=== PATIENT | male | born 2000 | race Caucasian/White ===

== ENCOUNTER 2024-09-03 22:44 | Emergency (ER) | payer OTHER ==
[~2024-09-03] VITALS: Ht 177.8 cm; Wt 53.0 kg
[2024-09-03 23:20] VITALS: TEMP 36.9; O2SAT 100
[2024-09-03] MEDS ORDERED: LIDO700A15 TP (23:41)
[2024-09-03] MEDS ORDERED: IBUP-2028 MT (23:41)
[2024-09-03 23:58] VITALS: BP 116/70; PULSE 71; RESP 16; O2SAT 98
== END 2024-09-03 23:58 | disposition home or self-care (01) ==
LOC: ER 22:44
DX: M54.2 Cervicalgia (principal); Z90.49 Acquired absence of other specified parts of digestive tract; V43.52XA Car driver injured in collision with other type car in traffic accident, initial encounter; Y93.89 Activity, other specified; Y92.89 Other specified places as the place of occurrence of the external cause; Y99.8 Other external cause status
CPT/HCPCS: 99282; 99283